=== PATIENT | female | born 1955 | race Caucasian/White ===

== ENCOUNTER 2018-03-17 22:00 | Inpatient (IN) | payer OTHER, MEDICARE ==
[~2018-03-17] VITALS: Ht 157.5 cm; Wt 112.7 kg
[~2018-03-17 22:00] MED LIST: ADULTS' DAILY1 EAC1 PO; ALDACTONE25 MG PO; Aldactone PO; BACLOFEN10 MG PO; CAL-CITRATE PL1 EACH PO; CELEBREX200 MG PO; CHILDREN'S ASPI81 M1 PO; Citracal Maximum (Ca PO; Dulcolax PO; Ecotrin PO; FLEXERIL5 MG PO; FOLIC ACID0.4 MG PO; Feosol PO; Flexeril PO; Folvite PO; GLUCOPHAGE500 MG PO; IFEREX 150150 MG PO; LASIX40 MG PO; LOPRESSOR25 MG PO; Lasix PO; Lioresal PO; Lomotil,Lonox PO; Lopressor PO; MAXALT10 MG PO; MULTI PROBIOTIC PO; NOVOLOG PE100 UNITS/ SC; Oscal 500 w/Vitamin PO; PRINIVIL20 MG PO; PROMETHAZINE HC25 M1 PO; PROTONIX40 MG PO; Protonix PO; Senokot S,Pericolace PO; Theragran PO; ULTRAM50 MG PO; VITAMIN B-121000 MC1 SL; VITAMIN D35000 UNIT PO; Vicodin,Norco 5/325 PO; Vitamin D PO; Zestril,Prinivil PO; celeBREX PO
[2018-03-18] MEDS ORDERED: CELEBREX200 MG PO (09:56)
[2018-03-18 10:14] VITALS: BP 150/70
[2018-03-18 16:47] LABS: HEMATOCRIT 37.4 % (36.0-46.0); HEMOGLOBIN 11.8 G/DL (11.9-15.5); MCH 27.8 PG (29.0-34.0); MCHC 31.6 G/DL (30.0-36.0); MCV 88.2 FL (83-99); PLATELET COUNT 195 K/uL (156-360); RBC DIS.WIDTH-CV 14.2 % (11.8-14.6); RBC DIS.WIDTH-SD 45.4 % (39-53); RED BLOOD COUNT 4.24 M/uL (3.80-5.20); WHITE BLOOD COUNT 6.7 K/uL (4.1-10.2)
[2018-03-18 18:26] VITALS: BP 126/88
[2018-03-18 20:34] VITALS: BP 178/91
[2018-03-19] VITALS: BP 125/64
[2018-03-19 04:18] VITALS: BP 142/64
[2018-03-19 06:30] LABS: HEMATOCRIT 34.2 % (36.0-46.0); HEMOGLOBIN 10.7 G/DL (11.9-15.5); MCV 88.6 FL (83-99)
[2018-03-19 07:04] LABS: CHLORIDE 103 MEQ/L (99-109); CREATININE 1.3 MG/DL (0.6-1.3); GFR ESTIMATE (CALCULATED) 44 mL/min/; GLUCOSE 152 mg/dL (70-99); POTASSIUM 4.7 MEQ/L (3.7-5.4); SODIUM 137 MEQ/L (136-147); UREA NITROGEN (BUN) 21 mg/dL (9-23)
[2018-03-19 08:22] VITALS: BP 125/64
[2018-03-19 12:14] VITALS: BP 110/55
[2018-03-19 15:39] VITALS: BP 135/68
[2018-03-19 20:00] VITALS: BP 164/74
[2018-03-20 00:06] VITALS: BP 174/72
[2018-03-20 04:15] VITALS: BP 133/59
[2018-03-20 06:15] LABS: HEMATOCRIT 32.1 % (36.0-46.0); HEMOGLOBIN 10.3 G/DL (11.9-15.5); MCV 87.2 FL (83-99)
[2018-03-20 10:12] LABS: PCO2 38 mm Hg (35-45); pH 7.43 (7.35-7.45)
[2018-03-20 10:13] LABS: BASE EXCESS 0.9 mEq/L (-3 to +3); BICARBONATE 25.2 mEq/L (22-26); CARBOXY HGB 0 % (0-5); DEVICE NC; METHEMOGLOBIN 0 % (0-1.5); O2 FLOW 2 L/MIN; O2 SATURATION (CALCULATED) 93.4 % (95-99); PO2 95 mm Hg (80-100); SITE RR; TOTAL RESP RATE 18 resp/min
[2018-03-20 10:34] LABS: BASOPHIL (%) 0.4 % (0-1); EOSINOPHIL (%) 3.3 % (0-5); EOSINOPHIL COUNT 0.3 K/uL (0-0.3); HEMATOCRIT 31.4 % (36.0-46.0); HEMOGLOBIN 10.1 G/DL (11.9-15.5); IMMATURE GRANULOCYTE (%) 0.3 % (0.0-0.7); LYMPHOCYTE (%) 5.6 % (15-42); LYMPHOCYTE COUNT 0.4 K/uL (1.0-2.8); MCH 28.1 PG (29.0-34.0); MCHC 32.2 G/DL (30.0-36.0); MCV 87.5 FL (83-99); MONOCYTE (%) 7.2 % (3-12); MONOCYTE COUNT 0.6 K/uL (0-0.8); NEUTROPHIL (%) 83.2 % (45-76); NEUTROPHIL COUNT 6.4 K/uL (1.8-6.4); PLATELET COUNT 164 K/uL (156-360); RBC DIS.WIDTH-CV 14.4 % (11.8-14.6); RBC DIS.WIDTH-SD 46.5 % (39-53); RED BLOOD COUNT 3.59 M/uL (3.80-5.20); WHITE BLOOD COUNT 7.7 K/uL (4.1-10.2)
[2018-03-20 10:54] LABS: TROP-I INTERPRETATION NEGATIVE; TROPONIN-I 0.03 ng/mL (0.0-0.30)
[2018-03-20 11:09] LABS: ALBUMIN 2.9 G/DL (3.2-4.8); ALKALINE PHOSPHATASE 74 IU/L (3-129); ALT (GPT) 14 IU/L (3-49); AST (GOT) 14 IU/L (2-34); CHLORIDE 103 MEQ/L (99-109); CREATININE 1.1 MG/DL (0.6-1.3); GFR ESTIMATE (CALCULATED) 53 mL/min/; POTASSIUM 4.3 MEQ/L (3.7-5.4); SODIUM 138 MEQ/L (136-147); TOTAL BILIRUBIN 0.6 MG/DL (0.0-1.0); UREA NITROGEN (BUN) 19 mg/dL (9-23)
[2018-03-20 11:10] LABS: GLUCOSE 278 mg/dL (70-99); TOTAL PROTEIN 5.3 G/DL (6.4-8.3)
[2018-03-20 11:23] VITALS: BP 131/59
[2018-03-20 11:41] VITALS: BP 131/59
[2018-03-20 15:58] VITALS: BP 109/56
[2018-03-20 19:28] VITALS: BP 113/55
[2018-03-21 00:04] VITALS: BP 128/57
[2018-03-21 04:30] VITALS: BP 113/57
[2018-03-21 05:26] LABS: HEMATOCRIT 26.7 % (36.0-46.0); HEMOGLOBIN 8.6 G/DL (11.9-15.5); MCH 28.3 PG (29.0-34.0); MCHC 32.2 G/DL (30.0-36.0); MCV 87.8 FL (83-99); PLATELET COUNT 133 K/uL (156-360); RBC DIS.WIDTH-CV 14.6 % (11.8-14.6); RBC DIS.WIDTH-SD 47.4 % (39-53); RED BLOOD COUNT 3.04 M/uL (3.80-5.20); WHITE BLOOD COUNT 5.9 K/uL (4.1-10.2)
[2018-03-21 06:15] LABS: CHLORIDE 106 MEQ/L (99-109); CREATININE 1.2 MG/DL (0.6-1.3); GFR ESTIMATE (CALCULATED) 48 mL/min/; POTASSIUM 4.1 MEQ/L (3.7-5.4); SODIUM 136 MEQ/L (136-147); UREA NITROGEN (BUN) 21 mg/dL (9-23)
[2018-03-21 06:23] LABS: GLUCOSE 137 mg/dL (70-99)
[2018-03-21 08:00] VITALS: BP 141/87
[2018-03-21 11:00] VITALS: BP 116/59
[2018-03-21 17:00] VITALS: BP 116/59
[2018-03-21 20:34] VITALS: BP 185/78
[2018-03-22 00:43] VITALS: BP 128/59
[2018-03-22 05:55] VITALS: BP 129/57
[2018-03-22 07:28] VITALS: BP 118/72
[2018-03-22] MEDS ORDERED: DOCUSATE SODIU100 MG PO (08:15)
[2018-03-22] MEDS ORDERED: TRAMADOL HCL50 MG PO (08:16)
[2018-03-22] MEDS ORDERED: LOVENOX40 MG/0.4 SC (08:16)
[2018-03-22] MEDS ORDERED: CELECOXIB200 MG PO (08:16)
[2018-03-22 10:18] LABS: HEMATOCRIT 28.5 % (36.0-46.0); HEMOGLOBIN 8.8 G/DL (11.9-15.5); MCV 89.9 FL (83-99)
[2018-03-22 11:06] VITALS: BP 134/62
[2018-03-22 16:02] VITALS: BP 139/77
== END 2018-03-22 19:10 | DRG 467 ==
LOC: ENRESERV 22:00 → 2SOUTH 03-18 09:04 → 3WEST 03-18 09:04 → 3EAST 03-18 09:04 → 2SOUTH 03-18 11:27 → 3WEST 03-18 18:14 → 3EAST 03-20 11:23 → ENRESERV 03-20 11:27 → 3EAST 03-22 19:10
PROVIDERS: Internal Medicine; Orthopaedic Surgery
DX: T84.032A Mechanical loosening of internal right knee prosthetic joint, initial encounter (principal); Y79.2 Prosthetic and other implants, materials and accessory orthopedic devices associated with adverse incidents; I10 Essential (primary) hypertension; G47.30 Sleep apnea, unspecified; R41.82 Altered mental status, unspecified; T40.605A Adverse effect of unspecified narcotics, initial encounter; K21.9 Gastro-esophageal reflux disease without esophagitis; E11.9 Type 2 diabetes mellitus without complications; D64.9 Anemia, unspecified; I25.83 Coronary atherosclerosis due to lipid rich plaque; M19.90 Unspecified osteoarthritis, unspecified site; Z96.652 Presence of left artificial knee joint; E66.01 Morbid (severe) obesity due to excess calories; Z68.42 Body mass index [BMI] 45.0-49.9, adult; Z98.84 Bariatric surgery status; Z88.0 Allergy status to penicillin; Z88.2 Allergy status to sulfonamides; Z95.5 Presence of coronary angioplasty implant and graft; Z79.84 Long term (current) use of oral hypoglycemic drugs
CPT/HCPCS: 36600; 70450; 71045; 73560; 80048; 80053; 82803; 82948; 83605; 84484; 85014; 85018; 85025; 85027; 87040; 87641; 93005; 94799; 97530 GP; C1713; C1776; J0360; J1650; J1815; J2250; J2405; J2795; J7030; J7050